=== PATIENT | male | born 1995 | race African-American/Black ===

== ENCOUNTER 2017-01-08 00:38 | Emergency (ER) | payer SELFPAY ==
--- NOTE | 2017-01-08 01:18 | ED Physician Documentation ---
Psychological Disorders - HISTORIAN Historian: patient - HPI Chief Complaint: Psychological Disorder Onset: minutes Intent: suicide Further Comments: yes (21 year old male patient brought in by [facility] after suicide attempt. PD reports patient had rope around his neck which his girlfriend "cut off" to keep patient from hanging himself. He then placed a neck tie around his neck. PD was called to the home, patient refused EMS transport. PD brought to ER for evaluation. Patient reports being off his bipolar medication since age 19. Patient reports increased stressed related to loosing his job. Found out his girlfriend was 2 weeks ago.) - Associated Symptoms Symptoms: depressed, angry, frustrated, agitated Suicidal: attempt Ingestion: suicide attempt Mechanism: other (hanging) - ROS CONST: none NEURO/PSYCH: anxiety, depression EYES/ENT: none CVS/RESP: none GI/: denies: nausea, vomiting MS/SKIN/LYMPH: denies: joint pain, leg swelling - PAST HX Psychiatric problems: bipolar disorder, depression Allergies/Adverse Reactions: Allergies Allergy/AdvReac Type Severity Reaction Status Date / Time No Known Allergies Allergy Unverified 01/08/17 01:18 Home Medications: Ambulatory Orders Medication Instructions Recorded NK [NK] 01/08/17 - Social HX Smoking History: cigarettes Drug Use: marijuana - Family HX Family HX: denies: mental illness - VITAL SIGNS Vital Signs: Vital Signs Temp Pulse Resp BP Pulse Ox 95 H 16 136/79 98 01/08/17 00:45 01/08/17 00:45 01/08/17 00:45 01/08/17 00:45 - REVIEWED ASSESSMENTS Nursing Assessment Reviewed: Yes Vitals Reviewed: Yes Progress - Progress Progress: Patient initially refused blood draw. Explained psychiatric clearance process. Patient more cooperative with cuffs off, allowed blood draw. Patient reports previous inpatient admission as a child. 0430 Patient accepted by [facility] [place] for psychiatric evaluation and admission if needed. ED Results Lab/Radiology - Lab Results Lab Results: Lab Results 01/08/17 01/08/17 01/08/17 01:40 01:40 01:11 WBC RBC Hgb Hct MCV MCH MCHC RDW Plt Count Neut % (Auto) Lymph % (Auto) [place] % (Auto) Eos % (Auto) Baso % (Auto) Neut # (Auto) Lymph # (Auto) [place] # (Auto) Eos # (Auto) Baso # (Auto) Reactive Lymphs % Reactive Lymphs # Sodium 138 mmol/L mmol/L (137-145) Potassium 3.5 mmol/L mmol/L (3.5-5.1) Chloride 100 mmol/L mmol/L (98-107) Carbon Dioxide 28 mmol/L mmol/L (22-30) BUN 17 mg/dL mg/dL (9-20) Creatinine 1.30 mg/dL H mg/dL (0.66-1.25) Estimated Creat Clear 104 Est GFR ( Amer) > 60 (60 - ) Est GFR (Non-Af Amer) > 60 (60 - ) Glucose 138 mg/dL H mg/dL (74-106) Calcium 9.7 mg/dL mg/dL (8.4-10.2) Total Bilirubin 0.2 mg/dL mg/dL (0.2-1.3) AST 23 U/L U/L (15-46) ALT 26 U/L U/L (13-69) Alkaline Phosphatase 67 U/L U/L (38-126) Total Protein 7.8 g/dL g/dL (6.3-8.2) Albumin 4.5 g/dL g/dL (3.5-5.0) Urine Color [place] (YELLOW) Urine Appearance Clear (CLEAR) Urine pH 6.0 (5.0 - 8.0) Ur Specific [place] >=1.030 H (1.010-1.030) Urine Protein 2+ mg/dL H mg/dL (NEGATIVE) Urine Ketones Trace mg/dL H mg/dL (NEGATIVE) Urine Occult Blood Negative (NEGATIVE) Urine Nitrite Negative (NEGATIVE) Urine Bilirubin 1+ H (NEGATIVE) Urine Urobilinogen 0.2 Eu Eu (0.2-1.0) Ur Leukocyte Esterase Negative (NEGATIVE) Urine Glucose Negative mg/dL mg/dL (NEGATIVE) Opiates Screen Negative ng/mL ng/mL (<300) Oxycodone Screen Negative ng/mL ng/mL (<100) Methadone Screen Negative ng/mL ng/mL (<300) Acetaminophen < 10.0 ug/mL L ug/mL (10-30) POC Urine Barbiturates Negative ng/mL ng/mL (<300) Tricyclic Antidepress Negative ng/mL ng/mL (<300) Phencyclidine Screen Negative ng/mL ng/mL (<25) Amphetamines Screen Negative ng/mL ng/mL (<1000) POC Ur Methamphetamine Negative ng/mL ng/mL (<1000) MDMA Negative ng/mL ng/mL (<500) Benzodiazepines Screen Negative ng/mL ng/mL (<300) Cocaine Screen Negative ng/mL ng/mL (<300) U Cannabinoids Screen Non negative ng/mL H ng/mL (< 50) Ethyl Alcohol < 10.0 mg/dL mg/dL (0.0-10.0) 01/08/17 01:11 WBC 8.00 K/ul K/ul (4.00-12.00) RBC 4.42 M/ul M/ul (3.90-5.20) Hgb 14.2 g/dL g/dL (12.0-18.0) Hct 41.1 % % (37.0-53.0) MCV 93.1 fl fl (80.0-100.0) MCH 32.1 pg pg (28.0-34.0) MCHC 34.5 g/dL g/dL (30.0-36.0) RDW 12.0 % % (11.3-14.3) Plt Count 200 K/mm3 K/mm3 (130-400) Neut % (Auto) 53.0 % % (39.0-79.0) Lymph % (Auto) 36.7 % % (16.0-50.0) [place] % (Auto) 3.9 % % (0.0-11.0) Eos % (Auto) 4.4 % % (0.0-6.8) Baso % (Auto) 0.4 (0.0-1.5) Neut # (Auto) 4.3 # k/uL # k/uL (1.4-7.7) Lymph # (Auto) 3.0 # k/uL # k/uL (0.6-4.0) [place] # (Auto) 0.3 # k/uL # k/uL (0.0-0.9) Eos # (Auto) 0.4 # k/uL # k/uL (0.0-0.6) Baso # (Auto) 0.0 # k/uL # k/uL (0.0-0.5) Reactive Lymphs % 1.7 % % (0.0-5.0) Reactive Lymphs # 0.1 # k/uL # k/uL (0.0-0.8) Sodium Potassium Chloride Carbon Dioxide BUN Creatinine Estimated Creat Clear Est GFR ( Amer) Est GFR (Non-Af Amer) Glucose Calcium Total Bilirubin AST ALT Alkaline Phosphatase Total Protein Albumin Urine Color Urine Appearance Urine pH Ur Specific [place] Urine Protein Urine Ketones Urine Occult Blood Urine Nitrite Urine Bilirubin Urine Urobilinogen Ur Leukocyte Esterase Urine Glucose Opiates Screen Oxycodone Screen Methadone Screen Acetaminophen POC Urine Barbiturates Tricyclic Antidepress Phencyclidine Screen Amphetamines Screen POC Ur Methamphetamine MDMA Benzodiazepines Screen Cocaine Screen U Cannabinoids Screen Ethyl Alcohol - Orders Orders: ED Orders Category Date Time Status ACETAMINOPHEN LEVEL Stat Lab 01/08/17 01:11 Completed ALCOHOL MEDICAL USE ONLY Stat Lab 01/08/17 01:11 Completed CBC/PLATELET/DIFF Stat Lab 01/08/17 01:11 Completed CMP Stat Lab 01/08/17 01:11 Completed DRUG SCREEN URINE MEDICAL ONLY Stat Lab 01/08/17 01:40 Completed UA MACRO DIP ONLY Stat Lab 01/08/17 01:40 Completed EKG WITH COMPARISON Stat Ther 01/08/17 01:01 Ordered EKG WITH COMPARISON Stat Ther 01/08/17 01:02 Ordered Psych Physical Exam - Physical Exam General Appearance: anxious Eyes: PERRL Mental Status: depressed affect / mood Suicide Attempts: admit Orientation: nml x3 Cranial Nerves: CN's intact as tested Sensory, Motor: nml motor response, nml sensory response, nml reflexes, nml gait Neck/Back: normal inspection, thyroid normal Respiratory: no resp distress, chest non-tender, breath sounds normal CVS: reg rate & rhythm, heart sounds normal, equal pulses, no murmur, no gallop , PMI nml, no JVD, no friction rub, 24 Abdomen: non-tender, no organomegaly, nml bowel sounds, no distention Skin: normal color, warm/dry, NR, INT, PAL, DR Extremities: non-tender, normal range of motion, no evidence of injury, no edema , J, [employer] Discharge Clincal Impression: Suicide attempt, Suicidal ideations Referrals: Primary Doctor,No [Primary Care Provider] - 2 Days Condition: Serious Disposition: 02 XFER [id number] HOSP Decision to Admit: NO Decision Time: 06:30
[2017-01-08 01:21] LABS: BASOPHILS % 0.4 (0.0-1.5); EOSINOPHILS % 4.4 % (0.0-6.8); MEAN CORPUSCULAR HEMOGLOBIN 32.1 pg (28.0-34.0); MEAN CORPUSCULAR VOLUME 93.1 fl (80.0-100.0); MONOCYTES % 3.9 % (0.0-11.0); NEUTROPHILS # 4.3 # k/uL (1.4-7.7)
[2017-01-08 01:27] LABS: eGFR (African) > 60; eGFR (Non-African) > 60
[2017-01-08 05:40] LABS: AMPHETAMINE NEGATIVE ng/mL (<1000); BARBITURATES NEGATIVE ng/mL (<300); CANNABINOIDS NON NEGATIVE ng/mL (< 50); COCAINE NEGATIVE ng/mL (<300); METHAMPHETAMINE NEGATIVE ng/mL (<1000); METHYLENEDIOXYMETHAMPHETAMINE NEGATIVE ng/mL (<500); OPIATES NEGATIVE ng/mL (<300)
[2017-01-08 05:41] LABS: APPEARANCE,URINE CLEAR (CLEAR); COLOR,URINE AMBER (YELLOW); OCCULT BLOOD,URINE NEGATIVE (NEGATIVE); UROBILINOGEN URINE 0.2 Eu (0.2-1.0)
[2017-01-08 07:17] VITALS: BP 122/72
== END 2017-01-08 07:17 | disposition short-term general hospital (02) ==
LOC: ED 00:38
DX: T14.91XA Suicide attempt, initial encounter (principal); X58.XXXA Exposure to other specified factors, initial encounter; Y93.9 Activity, unspecified; Y99.9 Unspecified external cause status
CPT/HCPCS: 80053; 80304; 80320; 80377; 81002; 85025; 99284; G0477; G0480; G0481